=== PATIENT | male | born 1945 | race Caucasian/White ===

== ENCOUNTER 2024-10-03 20:04 | Inpatient (IN) | payer OTHER, MEDICARE ==
[~2024-10-03] VITALS: Ht 175.3 cm; Wt 70.3 kg
[2024-10-04] MEDS ORDERED: APIX5TAB PO (02:16)
[2024-10-04] MEDS ORDERED: TRAZ-182 PO (02:16)
[2024-10-04] MEDS ORDERED: METO50TA16 PO (02:16)
[2024-10-04] MEDS ORDERED: ACET650T10 PO (02:16)
[2024-10-04] MEDS ORDERED: FLUO20CA42 PO (02:16)
[2024-10-04] MEDS ORDERED: BISA10SU11 RC (02:16)
[2024-10-04] MEDS ORDERED: DEXT10TA7 PO (02:16)
[2024-10-04] MEDS ORDERED: MAGN400C PO (02:16)
[2024-10-04] MEDS ORDERED: SPIR25TA6 PO (02:16)
[2024-10-04] MEDS ORDERED: FAMO20TA8 PO (02:16)
[2024-10-04] MEDS ORDERED: DIGO125T PO (02:16)
[2024-10-04] MEDS ORDERED: TAMS-3 PO (02:16)
[2024-10-04] MEDS ORDERED: ASPI81TA31 PO (02:16)
[2024-10-04] MEDS ORDERED: MAGN400T30 PO (02:16)
[2024-10-04] MEDS ORDERED: CHOL10005 PO (02:16)
[2024-10-04] MEDS ORDERED: ATOR80TA PO (02:16)
[2024-10-04] MEDS ORDERED: POLY17PO4 PO (02:17)
[2024-10-04] MEDS ORDERED: VALS160T2 PO (02:20)
[2024-10-04 03:05] VITALS: BP 156/97; TEMP 98.1; O2SAT 95
[2024-10-04] MEDS ORDERED: MAG HYDROX/AL HYDROX/SIMETH 30 ML LIQUID UDC PO PRN (03:15)
[2024-10-04] MEDS ORDERED: TEMAZEPAM 7.5 MG CAPSULE PO PRN ×2 (03:15)
[2024-10-04] MEDS ORDERED: MAGNESIUM HYDROXIDE 30 ML LIQUID UDC PO PRN (03:15)
[2024-10-04] MEDS ORDERED: CLONAZEPAM 0.5 MG TABLET PO PRN (03:15)
[2024-10-04] MEDS: BLOOD SUGAR DIAGNOSTIC 1 EACH STRIP VI ONE (03:34)
[2024-10-04] MEDS: CLONAZEPAM 0.5 MG TABLET PO PRN (03:38)
[2024-10-04] MEDS: ACETAMINOPHEN 325 MG TABLET PO PRN (03:38)
[2024-10-04 08:16] VITALS: BP 129/51; TEMP 98.2; O2SAT 100
[2024-10-04 16:18] VITALS: BP 151/99; TEMP 97.8; O2SAT 98
[2024-10-04] MEDS ORDERED: MIRALAX 17 GM POWD.PACK PO PRN (18:15)
[2024-10-04] MEDS ORDERED: Medication Not On Formulary EA (Acetaminophen 650 MG) PO PRN (18:15)
[2024-10-04] MEDS ORDERED: BISACODYL 10 MG SUPP.RECT RC PRN (18:15)
[2024-10-04 20:00] VITALS: BP 171/94; TEMP 98.2; O2SAT 97
[2024-10-04] MEDS: QUETIAPINE FUMARATE 25 MG TABLET PO SCH (20:34)
[2024-10-04] MEDS: METOPROLOL TARTRATE 50 MG TABLET PO SCH (20:47)
[2024-10-04 21:40] VITALS: BP 163/83
[2024-10-04 23:06] VITALS: BP 152/84
[2024-10-04] MEDS: TEMAZEPAM 7.5 MG CAPSULE PO PRN (23:06)
[2024-10-05 07:55] VITALS: BP 153/80; TEMP 98.2; O2SAT 98
[2024-10-05 08:23] LABS: BASOPHILS % (AUTO) 0.3 % (0.0-2.0); EOSINOPHILS # (AUTO) 0.4 K/uL (0.0-0.7); EOSINOPHILS % (AUTO) 4.3 % (0.0-7.0); HEMATOCRIT 36.3 % (36.7-47.1); HEMOGLOBIN 12.3 g/dL (12.5-16.3); LYMPHOCYTES % (AUTO) 22.5 % (20.5-51.5); MEAN CORPUSCULAR HEMOGLOBIN 30.1 uug (23.8-33.4); MEAN CORPUSCULAR HGB CONC 34 g/dL (32.5-36.3); MEAN CORPUSCULAR VOLUME 89.1 fL (73.0-96.2); MONOCYTES # (AUTO) 0.8 K/uL (0.1-1.30); MONOCYTES % (AUTO) 8.9 % (0.0-11.0); NEUTROPHILS # (AUTO) 5.5 K/uL (1.8-8.9); PLATELET COUNT (AUTO) 160 K/uL (152-348); RED BLOOD CELL COUNT(AUTO) 4.08 MIL/uL (4.06-5.63); RED CELL DISTRIBUTION WIDTH 17.2 % (12.1-16.2); WHITE BLOOD COUNT (AUTO) 8.7 K/uL (3.6-10.2)
[2024-10-05 08:36] LABS: CALCIUM 8.6 mg/dL (8.5-10.1); CARBON DIOXIDE 25 mmol/L (21-32); CHLORIDE 109 mmol/L (98-107); CHOLESTEROL 74 mg/dL (<200); CREATININE 0.9 mg/dL (0.6-1.3); GLUCOSE 88 mg/dL (74-106); GLUCOSE FASTING 88 mg/dL (70-115); HDL CHOLESTEROL 37 mg/dL (40-60); MAGNESIUM 1.6 mg/dL (1.8-2.4); PHOSPHOROUS 3.1 mg/dL (2.5-4.9); POTASSIUM 3.5 mmol/L (3.5-5.1); SODIUM SERUM 142 mmol/L (136-145); TRIGLYCERIDES 62 MG/DL (30-150); UREA NITROGEN, BLOOD 12 mg/dL (7-18)
[2024-10-05 08:46] LABS: DIFFERENTIAL COMMENT 1
[2024-10-05] MEDS: MAGNESIUM OXIDE 400 MG TABLET PO SCH (08:55)
[2024-10-05] MEDS: FAMOTIDINE 20 MG TABLET PO SCH (08:55)
[2024-10-05] MEDS: CHOLECALCIFEROL 1,000 UNIT TABLET PO SCH (08:56)
[2024-10-05] MEDS: FLUOXETINE HCL 20 MG CAPSULE PO SCH (08:56)
[2024-10-05] MEDS ORDERED: METOPROLOL TARTRATE 50 MG TABLET PO SCH (09:00)
[2024-10-05] MEDS: VALSARTAN 160 MG TABLET PO SCH ×2 (09:00→21:28)
[2024-10-05] MEDS: DIGOXIN 125 MCG TABLET PO SCH (09:00)
[2024-10-05] MEDS: SPIRONOLACTONE 25 MG TABLET PO SCH (09:01)
[2024-10-05] MEDS: APIXABAN 5 MG TABLET PO SCH (09:02)
[2024-10-05] MEDS: ASPIRIN 81 MG TAB.CHEW PO SCH (09:03)
[2024-10-05 09:10] LABS: THYROID STIMULATING HORMONE 1.082 mIU/mL (0.358-3.740)
[2024-10-05 16:00] VITALS: BP 163/85; TEMP 98.2; O2SAT 96
[2024-10-05] MEDS: METOPROLOL TARTRATE 50 MG TABLET PO SCH (19:50)
[2024-10-05 20:00] VITALS: BP 132/78; TEMP 98.1; O2SAT 98
[2024-10-05] MEDS: TAMSULOSIN HCL 0.4 MG CAP.SR.24H PO SCH (21:25)
[2024-10-05] MEDS: ATORVASTATIN 40 MG TABLET PO SCH (21:25)
[2024-10-06 08:16] VITALS: BP 167/112; TEMP 98; O2SAT 100
[2024-10-06] MEDS: CLONAZEPAM 0.5 MG TABLET PO PRN (09:00)
[2024-10-06] MEDS ORDERED: hydrALAZINE HCL 25 MG TABLET PO PRN (15:15)
[2024-10-06 20:00] VITALS: BP 109/59; TEMP 98.4; O2SAT 95
[2024-10-07 08:16] VITALS: BP 136/63; TEMP 98.2; O2SAT 98
[2024-10-07] MEDS: DIVALPROEX SPRINKLE 125 MG CAP.SPRINK PO SCH (12:25)
[2024-10-07 16:44] VITALS: BP 130/67; TEMP 98.2; O2SAT 98
[2024-10-07 20:16] VITALS: BP 137/86; TEMP 98.1; O2SAT 95
[2024-10-07] MEDS: QUETIAPINE FUMARATE 25 MG TABLET PO SCH (20:27)
[2024-10-08 08:14] VITALS: BP 138/58; TEMP 98.1; O2SAT 100
[2024-10-08] MEDS: LIDOCAINE 5% PATCH TD SCH (08:39)
[2024-10-08] MEDS ORDERED: FLUOXETINE HCL 20 MG CAPSULE PO SCH (09:00)
[2024-10-08 20:36] VITALS: BP 155/88; TEMP 99.4; O2SAT 99
[2024-10-09 07:47] VITALS: BP 134/86; TEMP 98.2; O2SAT 98
[2024-10-09 16:00] VITALS: BP 109/60; TEMP 97.2; O2SAT 99
[2024-10-09 20:05] VITALS: BP 101/70; TEMP 97.9; O2SAT 97
[2024-10-09] MEDS: METOPROLOL TARTRATE 50 MG TABLET PO SCH (20:56)
[2024-10-10 08:14] VITALS: BP 136/80; TEMP 98.6; O2SAT 98
[2024-10-10 16:16] VITALS: BP 125/75; TEMP 98.2; O2SAT 100
[2024-10-10 20:00] VITALS: BP 140/89; TEMP 98.2; O2SAT 98
[2024-10-11 09:03] VITALS: BP 143/77; TEMP 98.5; O2SAT 95
[2024-10-11] MEDS: LIDOCAINE 5% PATCH TD SCH (09:15)
[2024-10-11 16:14] VITALS: BP 141/69; TEMP 98.1; O2SAT 98
[2024-10-11 20:11] VITALS: BP 142/83; TEMP 99.4; O2SAT 97
[2024-10-12 08:16] VITALS: BP 115/87; TEMP 97.6; O2SAT 98
[2024-10-12 16:14] VITALS: BP 140/91; TEMP 98.2; O2SAT 98
[2024-10-12 19:50] VITALS: BP 147/91; TEMP 98.2; O2SAT 97
[2024-10-13 08:17] VITALS: BP 145/81; TEMP 98.2; O2SAT 100
[2024-10-13 08:36] LABS: BASOPHILS # (AUTO) 0.1 K/UL (0.0-0.2); BASOPHILS % (AUTO) 0.8 % (0.0-2.0); EOSINOPHILS # (AUTO) 0.1 K/uL (0.0-0.7); EOSINOPHILS % (AUTO) 2.1 % (0.0-7.0); HEMATOCRIT 38.4 % (36.7-47.1); LYMPHOCYTES # (AUTO) 1.7 K/uL (0.8-4.8); LYMPHOCYTES % (AUTO) 26.9 % (20.5-51.5); MEAN CORPUSCULAR HEMOGLOBIN 30.4 uug (23.8-33.4); MEAN CORPUSCULAR HGB CONC 34 g/dL (32.5-36.3); MEAN CORPUSCULAR VOLUME 89.7 fL (73.0-96.2); MONOCYTES # (AUTO) 0.5 K/uL (0.1-1.30); MONOCYTES % (AUTO) 7.8 % (0.0-11.0); NEUTROPHILS % (AUTO) 62.4 % (38.5-71.5); PLATELET COUNT (AUTO) 168 K/uL (152-348); RED BLOOD CELL COUNT(AUTO) 4.29 MIL/uL (4.06-5.63); RED CELL DISTRIBUTION WIDTH 17.3 % (12.1-16.2); WHITE BLOOD COUNT (AUTO) 6.5 K/uL (3.6-10.2)
[2024-10-13 08:41] LABS: DIFFERENTIAL COMMENT 1
[2024-10-13 08:50] LABS: ALANINE AMINOTRANSFERASE 52 U/L (16-63); ALKALINE PHOSPHATASE 120 U/L (50-136); ASPARTATE AMINOTRANSFERASE 26 U/L (15-37); BILIRUBIN,TOTAL 0.8 mg/dL (0.2-1.0); CALCIUM 8.8 mg/dL (8.5-10.1); CARBON DIOXIDE 27 mmol/L (21-32); CHLORIDE 107 mmol/L (98-107); CREATININE 0.9 mg/dL (0.6-1.3); GLUCOSE 90 mg/dL (74-106); POTASSIUM 4.3 mmol/L (3.5-5.1); SODIUM SERUM 142 mmol/L (136-145); TOTAL PROTEIN, SERUM 6.7 g/dL (6.4-8.2); UREA NITROGEN, BLOOD 19 mg/dL (7-18); VALPROIC ACID 22 ug/mL (50-100)
[2024-10-13 08:51] VITALS: BP 147/91
== END 2024-10-13 13:15 | DRG 885 ==
LOC: ER 20:04 → GPS 10-04 02:45
PROVIDERS: ADMIT Psychiatry & Neurology Psychosomatic Medicine; ATTEND Student in an Organized Health Care Education/Training Program
DX: F39 Unspecified mood [affective] disorder (principal); D68.59 Other primary thrombophilia; I48.91 Unspecified atrial fibrillation; R45.850 Homicidal ideations; M62.81 Muscle weakness (generalized); Z86.73 Personal history of transient ischemic attack (TIA), and cerebral infarction without residual deficits; Z79.899 Other long term (current) drug therapy; Z79.82 Long term (current) use of aspirin; Z79.01 Long term (current) use of anticoagulants; Z86.718 Personal history of other venous thrombosis and embolism; D64.9 Anemia, unspecified; K21.9 Gastro-esophageal reflux disease without esophagitis; R94.31 Abnormal electrocardiogram [ECG] [EKG]; E78.5 Hyperlipidemia, unspecified; G89.29 Other chronic pain; M54.50 Low back pain, unspecified; I10 Essential (primary) hypertension; F90.9 Attention-deficit hyperactivity disorder, unspecified type; G47.419 Narcolepsy without cataplexy
CPT/HCPCS: 36415; 80164; 83735; 84100; 84443; 85025

== ENCOUNTER 2024-12-18 14:13 | Inpatient (IN) | payer OTHER, MEDICARE ==
[~2024-12-18] VITALS: Ht 205.7 cm; Wt 75.3 kg
[~2024-12-18 14:13] MED LIST: ACET650T10 PO; APIX5TAB PO; ASPI81TA31 PO; ATOR80TA PO; BISA10SU11 RC; CHOL10005 PO; DEXT10TA7 PO; DIGO125T PO; FAMO20TA8 PO; MAGN400C PO; METO50TA16 PO; POLY17PO4 PO; SPIR25TA6 PO; TAMS-3 PO; VALS160T2 PO
[2024-12-18] MEDS ORDERED: diphenhydrAMINE 50 MG/1 ML VIAL ONE (14:45)
[2024-12-18 17:30] LABS: *BILIRUBIN,URIN NEGATIVE (NEGATIVE); *BLOOD, URINE NEGATIVE (NEGATIVE); *CLARITY,URINE CLEAR (CLEAR); *COLOR,URINE YELLOW (YELLOW); *KETONES,URINE NEGATIVE (NEGATIVE); *PROTEIN,URINE NEGATIVE (NEGATIVE); *UROBILINOGEN,URINE 0.2 E.U./dl (NORMAL); LEUKOCYTE ESTERASE ,URINE NEGATIVE (NEGATIVE); NITRITE, URINE NEGATIVE (NEGATIVE); UGLUCOSE NEGATIVE (NEGATIVE)
[2024-12-18 17:58] LABS: *AMPHETAMINE, URINE NEGATIVE (NEGATIVE); *BARBITURATE, URINE NEGATIVE (NEGATIVE); *BENZODIAZEPINE, URINE NEGATIVE (NEGATIVE); *CANNABINOID, URINE NEGATIVE (NEGATIVE); *COCCAINE, URINE NEGATIVE (NEGATIVE); *OPIATE, URINE NEGATIVE (NEGATIVE); *PHENCYCLIDINE SCREEN,URINE NEGATIVE (NEGATIVE); FENTANYL, URINE NEGATIVE (NEGATIVE)
[2024-12-18 18:41] VITALS: BP 164/96; TEMP 98.8; O2SAT 97
[2024-12-18] MEDS: OLANZAPINE 10 MG VIAL IM ONE (19:43)
[2024-12-18] MEDS ORDERED: MAGNESIUM HYDROXIDE 30 ML LIQUID UDC PO PRN (22:15)
[2024-12-18] MEDS ORDERED: TEMAZEPAM 7.5 MG CAPSULE PO PRN (22:15)
[2024-12-18] MEDS ORDERED: MAG HYDROX/AL HYDROX/SIMETH 30 ML LIQUID UDC PO PRN (22:15)
[2024-12-18] MEDS ORDERED: LORAZEPAM 0.5 MG TABLET PO PRN (22:15)
[2024-12-18] MEDS: ACETAMINOPHEN 325 MG TABLET PO PRN (23:18)
[2024-12-18] MEDS: LORAZEPAM 0.5 MG TABLET PO PRN (23:18)
[2024-12-19 08:20] VITALS: BP 189/102; TEMP 98.3; O2SAT 98
[2024-12-19 08:30] VITALS: BP 114/69; O2SAT 98
[2024-12-19] MEDS ORDERED: Medication Not On Formulary EA (Acetaminophen 650 MG) PO PRN (10:30)
[2024-12-19] MEDS ORDERED: MIRALAX 17 GM POWD.PACK PO PRN (10:30)
[2024-12-19] MEDS: METOPROLOL TARTRATE 50 MG TABLET PO SCH (11:20)
[2024-12-19] MEDS: DIGOXIN 125 MCG TABLET PO SCH (12:00)
[2024-12-19] MEDS ORDERED: QUETIAPINE FUMARATE 25 MG TABLET PO PRN (12:00)
[2024-12-19] MEDS: DIVALPROEX SPRINKLE 125 MG CAP.SPRINK PO SCH (13:05)
[2024-12-19] MEDS: VALSARTAN 160 MG TABLET PO SCH (17:00)
[2024-12-19] MEDS: APIXABAN 5 MG TABLET PO SCH (17:34)
[2024-12-19] MEDS: FAMOTIDINE 20 MG TABLET PO SCH (17:34)
[2024-12-19 21:00] VITALS: BP 116/79; TEMP 98.6
[2024-12-19] MEDS: QUETIAPINE FUMARATE 25 MG TABLET PO SCH (21:03)
[2024-12-19] MEDS: ATORVASTATIN 40 MG TABLET PO SCH (21:03)
[2024-12-19 21:37] VITALS: BP 109/67; TEMP 92.4; O2SAT 95
[2024-12-19] MEDS: TEMAZEPAM 7.5 MG CAPSULE PO PRN (22:19)
[2024-12-20 08:34] VITALS: BP 116/62; TEMP 98.2; O2SAT 98
[2024-12-20] MEDS ORDERED: Medication Not On Formulary EA (Cholecalciferol (Vitamin D3) (Vitamin D3) 1 CAP) PO SCH (09:00)
[2024-12-20] MEDS: TAMSULOSIN HCL 0.4 MG CAP.SR.24H PO SCH (09:00)
[2024-12-20] MEDS ORDERED: Medication Not On Formulary EA (Atorvastatin Calcium (Lipitor) 1 TAB) PO SCH (09:00)
[2024-12-20] MEDS: ASPIRIN 81 MG TAB.CHEW PO SCH (10:11)
[2024-12-20] MEDS: MAGNESIUM OXIDE 400 MG TABLET PO SCH (10:12)
[2024-12-20] MEDS: SPIRONOLACTONE 25 MG TABLET PO SCH (10:28)
[2024-12-20] MEDS: CHOLECALCIFEROL 1,000 UNIT TABLET PO SCH (10:38)
[2024-12-20 16:22] VITALS: BP 102/55; TEMP 98.2; O2SAT 99
[2024-12-20 20:00] VITALS: BP 141/78; TEMP 98.6; O2SAT 97
[2024-12-21 08:29] VITALS: BP 126/69; TEMP 98.4; O2SAT 98
[2024-12-21] MEDS: ENSURE ENLIVE (VAN) 240 ML LIQUID PO SCH (09:14)
[2024-12-21 15:30] VITALS: BP 102/67; TEMP 99.4; O2SAT 96
[2024-12-21 20:16] VITALS: BP 106/69; TEMP 98.6; O2SAT 96
[2024-12-22 08:00] VITALS: BP 161/81; TEMP 97.6; O2SAT 97
[2024-12-22] MEDS: LIDOCAINE 5% PATCH TD SCH (12:12)
[2024-12-22] MEDS: QUETIAPINE FUMARATE 25 MG TABLET PO SCH ×2 (12:41→20:44)
[2024-12-22 16:00] VITALS: BP 119/64; TEMP 98.5; O2SAT 98
[2024-12-22 20:00] VITALS: BP 120/69; TEMP 98.5; O2SAT 96
[2024-12-23 08:08] LABS: CALCIUM 8.4 mg/dL (8.5-10.1); CARBON DIOXIDE 23 mmol/L (21-32); CHLORIDE 109 mmol/L (98-107); CREATININE 0.8 mg/dL (0.6-1.3); GLUCOSE 80 mg/dL (74-106); POTASSIUM 4.2 mmol/L (3.5-5.1); SODIUM SERUM 140 mmol/L (136-145); UREA NITROGEN, BLOOD 24 mg/dL (7-18)
[2024-12-23 08:28] VITALS: BP 134/79; TEMP 98.5; O2SAT 98
[2024-12-23] MEDS: QUETIAPINE FUMARATE 25 MG TABLET PO SCH ×2 (09:21→21:14)
[2024-12-23 16:27] VITALS: BP 134/112; TEMP 98.3; O2SAT 100
[2024-12-23 19:56] VITALS: BP 150/85; TEMP 98.1; O2SAT 97
[2024-12-24 08:02] VITALS: BP 140/93; TEMP 98.2; O2SAT 98
[2024-12-24 15:24] VITALS: BP 107/71; TEMP 98; O2SAT 100
[2024-12-24 19:55] VITALS: BP 140/84; TEMP 98.1; O2SAT 96
[2024-12-25 08:04] VITALS: BP 93/47; TEMP 97.4; O2SAT 98
[2024-12-25 15:48] VITALS: BP 130/61; TEMP 98.4; O2SAT 98
[2024-12-25 20:00] VITALS: BP 123/80; TEMP 98.1; O2SAT 98
[2024-12-26 08:59] VITALS: BP 137/70; TEMP 98.3; O2SAT 93
[2024-12-26 16:20] VITALS: BP 131/91; TEMP 98.1; O2SAT 98
[2024-12-26 20:10] VITALS: BP 130/81; TEMP 98.1; O2SAT 95
[2024-12-27 08:24] VITALS: BP 122/78; TEMP 98.5; O2SAT 98
[2024-12-27] MEDS: METHOCARBAMOL 500 MG TABLET PO SCH (12:13)
[2024-12-27 16:32] VITALS: BP 132/70; TEMP 97.9; O2SAT 98
[2024-12-27 20:09] VITALS: BP 124/68; TEMP 97.9; O2SAT 96
[2024-12-28 07:44] VITALS: BP 126/69; TEMP 98.2; O2SAT 94
[2024-12-28] MEDS: METHOCARBAMOL 500 MG TABLET PO SCH (14:18)
[2024-12-28 15:06] VITALS: BP 98/60; TEMP 98.6; O2SAT 100
[2024-12-28 20:04] VITALS: BP 114/54; TEMP 98; O2SAT 99
[2024-12-29 08:22] VITALS: BP 166/89; TEMP 98.5; O2SAT 100
[2024-12-29 16:27] VITALS: BP 164/82; TEMP 98; O2SAT 100
[2024-12-29] MEDS ORDERED: METH-806 PO (16:28)
[2024-12-29] MEDS ORDERED: METO50TA16 PO (16:28)
[2024-12-29] MEDS ORDERED: APIX5TAB PO (16:28)
[2024-12-29] MEDS ORDERED: ASPI81TA31 PO (16:28)
[2024-12-29] MEDS ORDERED: VALS160T29 PO (16:28)
[2024-12-29] MEDS ORDERED: TAMS-3 PO (16:28)
[2024-12-29] MEDS ORDERED: FAMO20TA8 PO (16:28)
[2024-12-29] MEDS ORDERED: SPIR25TA PO (16:28)
[2024-12-29] MEDS ORDERED: ATOR40TA PO (16:28)
[2024-12-29] MEDS ORDERED: CHOL100062 PO (16:28)
[2024-12-29] MEDS ORDERED: LIDO30AD10 TD (16:28)
[2024-12-29] MEDS ORDERED: DIGO125T5 PO (16:28)
[2024-12-29] MEDS ORDERED: POLY17PO4 PO (16:31)
[2024-12-29 16:50] VITALS: BP 164/82
== END 2024-12-29 18:15 | DRG 885 ==
LOC: ER 14:13 → GPS 17:10
PROVIDERS: ADMIT Psychiatry & Neurology Psychosomatic Medicine; ATTEND Nurse Practitioner Acute Care
DX: F31.64 Bipolar disorder, current episode mixed, severe, with psychotic features (principal); I11.0 Hypertensive heart disease with heart failure; I48.20 Chronic atrial fibrillation, unspecified; F03.911 Unspecified dementia, unspecified severity, with agitation; F03.93 Unspecified dementia, unspecified severity, with mood disturbance; Z79.01 Long term (current) use of anticoagulants; F60.9 Personality disorder, unspecified; Z79.82 Long term (current) use of aspirin; Z79.899 Other long term (current) drug therapy; E78.5 Hyperlipidemia, unspecified; K21.9 Gastro-esophageal reflux disease without esophagitis; N40.0 Benign prostatic hyperplasia without lower urinary tract symptoms; Z86.73 Personal history of transient ischemic attack (TIA), and cerebral infarction without residual deficits; I50.9 Heart failure, unspecified
CPT/HCPCS: 36415; 70450; 71045; 83735; 87086; J1200; J2358